=== PATIENT | female | born 1980 | race Caucasian/White ===

== ENCOUNTER 2018-02-13 05:54 | Day surgery (SDC) | payer OTHER ==
[~2018-02-13 05:54] MED LIST: AMBIEN10 MG PO
[2018-02-13] MEDS ORDERED: ULTRACET PO (15:14)
== END 2018-02-13 17:40 | disposition home or self-care (01) ==
LOC: CIR.AMB 05:54
DX: K42.9 Umbilical hernia without obstruction or gangrene (principal)